=== PATIENT | male | born 1960 | race African-American/Black ===

== ENCOUNTER 2024-08-23 12:31 | Emergency (ER) | payer OTHER ==
[2024-08-23 12:39] VITALS: BP 129/74; PULSE 90; RESP 16; TEMP 97.9; BMI 28.8
[2024-08-23] MEDS ORDERED: IBUPROFEN 400 MG TABLET (FP) PO ONE (14:16)
[2024-08-23] MEDS: IBUPROFEN 400 MG TABLET (FP) PO ONE (14:25)
== END 2024-08-23 14:40 | disposition home or self-care (01) ==
LOC: JERFT 12:31
DX: S59.901A Unspecified injury of right elbow, initial encounter (principal); X50.1XXA Overexertion from prolonged static or awkward postures, initial encounter; Y99.0 Civilian activity done for income or pay
CPT/HCPCS: 73070-TC-RT-FY; 99283-25